=== PATIENT | female | born 1940 | race American Indian/Alaskan Native ===

== ENCOUNTER 2020-10-14 15:23 | Emergency (ER) | payer MEDICARE ==
[2020-10-14 16:09] LABS: Basophils # (Auto) 0.1 K/mm3 (0.0-0.1); Eosinophils # (Auto) 0.1 K/mm3 (0.0-0.4); Eosinophils % (Auto) 1.2 % (0.0-4.3); Hematocrit 38.1 % (30.3-42.9); Hemoglobin 12.9 gm/dl (10.1-14.3); Lymphocytes # (Auto) 2.3 K/mm3 (1.2-5.4); Lymphocytes % (Auto) 34.9 % (13.4-35.0); Mean Corpuscular HGB Conc 34 % (30-34); Mean Corpuscular Volume 89 fl (79-97); Monocytes # (Auto) 0.7 K/mm3 (0.0-0.8); Monocytes % (Auto) 9.9 % (0.0-7.3); Platelet Count 220 K/mm3 (140-440); Red Blood Count 4.28 M/mm3 (3.65-5.03); Red Cell Distribution Width 14.4 % (13.2-15.2)
[2020-10-14 16:16] LABS: Mucus,Urine FEW /HPF
[2020-10-14 16:27] LABS: BUN/Creatinine Ratio 14; Blood Urea Nitrogen 14 mg/dL (7-17); Calcium 8.8 mg/dL (8.4-10.2); Hemolysis Index 8
[2020-10-14 16:30] LABS: Bilirubin,Urine NEG (Negative); Blood,Urine NEG (Negative); Color,Urine Yellow (Yellow)
--- NOTE | 2020-10-14 17:58 | Emergency Department Report ---
ED Seizure HPI - General Chief Complaint: Seizure Stated Complaint: POSS STROKE Time Seen by Provider: 10/14/20 17:32 Source: patient Mode of arrival: Ambulatory Limitations: No Limitations - History of Present Illness Initial Comments: Chief complaint: "I think she had a seizure." HPI: This is a 80-year-old female with history of hypertension, CVA/TIA, dementia, GI bleed, anemia who presents with seizure-like episode witnessed by her daughter who is at the bedside. Patient was parked in the grocery store parking lot. While seated in the car., Daughter noticed her eyes rolling back of her head drooling, shaking of all extremities. She appears to just jump back. The seizure like episode lasted 5 seconds. No previous history of seizure. No history of new medications such as antibiotics. She feels in her normal state of health at this point. She did not have any preceding symptoms. She has been in her normal state of health. Prescriptions include memantine amlodipine metoprolol donepezil She has a follow-up appointment with her neurologist Dr. Michelle Cooper tomorrow. Patient had MRI brain within the last year she was recently diagnosed with dementia. She is retired. She lives alone. 3 daughters share caregiving responsib ilities. Complaint: seizure -: Sudden Description of Episode: loss of consciousness, tonic-clonic movement -: second(s) (5 seconds) Witnessed:: Yes Trauma: No Seizure History: none Place: other (In the car while sitting ) Possible Precipitating Event: none Associated Symptoms: denies other symptoms Treatments Prior to Arrival: none - Related Data Home Medications Medication Instructions Recorded Confirmed Last Taken Metoprolol [Lopressor TAB] 100 mg PO DAILY 12/27/13 01/08/14 Unknown Previous Rx's Medication Instructions Recorded Last Taken Type Sennosides/Docusate Sodium 1 each PO BID #30 tablet 12/28/13 Unknown Rx [Sennosides-Docusate Sodium Tab] Simvastatin [Zocor TAB] 5 mg PO QHS #30 tablet 12/28/13 Unknown Rx Pantoprazole [Protonix INJ] 40 mg PO BID #60 vial 01/10/14 Unknown Rx Ciprofloxacin HCl [Ciprofloxacin 500 mg PO Q12HR 10 Days #20 tab 11/23/19 Unknown Rx TAB] Allergies Allergy/AdvReac Type Severity Reaction Status Date / Time Sulfa (Sulfonamide Allergy Swelling Verified 12/27/13 07:25 Antibiotics) ED Review of Systems ROS: Stated complaint: POSS STROKE Other details as noted in HPI Comment: All other systems reviewed and negative Constitutional: denies: fever, malaise Respiratory: denies: cough, shortness of breath Cardiovascular: denies: chest pain Gastrointestinal: denies: abdominal pain, nausea, vomiting ED Past Medical Hx - Past Medical History Previous Medical History?: Yes Hx Hypertension: Yes Hx CVA: Yes (tia no residual) Hx Heart Attack/AMI: No Hx Congestive Heart Failure: No Hx Diabetes: No Hx Deep Vein Thrombosis: No Hx Pulmonary Embolism: No Hx GERD: No Hx Liver Disease: No Hx Renal Disease: No Hx Sickle Cell Disease: No Hx Arthritis: No Hx Headaches / Migraines: No Hx Seizures: No Hx Kidney Stones: No Hx Psychiatric Treatment: No Hx Asthma: No Hx COPD: No Hx Tuberculosis: No Hx Dementia: No Hx HIV: No - Surgical History Past Surgical History?: Yes Hx Open Heart Surgery: No Hx Internal Defibrillator: No Hx Cholecystectomy: No Hx Appendectomy: No Hx Breast Surgery: No Additional Surgical History: hysterectomy thyroid ectomy, mass removed shoulder right shoulder, breast biopsy (benign) - Social History Smoking Status: Never Smoker Substance Use Type: None - Medications Home Medications: Home Medications Medication Instructions Recorded Confirmed Last Taken Type Metoprolol [Lopressor TAB] 100 mg PO DAILY 12/27/13 01/08/14 Unknown History Sennosides/Docusate Sodium 1 each PO BID #30 tablet 12/28/13 01/08/14 Unknown Rx [Sennosides-Docusate Sodium Tab] Simvastatin [Zocor TAB] 5 mg PO QHS #30 tablet 12/28/13 01/08/14 Unknown Rx Pantoprazole [Protonix INJ] 40 mg PO BID #60 vial 01/10/14 Unknown Rx Ciprofloxacin HCl [Ciprofloxacin 500 mg PO Q12HR 10 Days #20 tab 11/23/19 Unknown Rx TAB] ED Physical Exam - General Limitations: No Limitations General appearance: alert, in no apparent distress - Head Head exam: Present: atraumatic, normocephalic - Eye Eye exam: Present: normal appearance - ENT ENT exam: Present: mucous membranes moist - Neck Neck exam: Present: normal inspection, full ROM - Respiratory Respiratory exam: Present: normal lung sounds bilaterally. Absent: respiratory distress, wheezes, rales, rhonchi - Cardiovascular Cardiovascular Exam: Present: regular rate, normal rhythm, normal heart sounds. Absent: systolic murmur, diastolic murmur, rubs, gallop - GI/Abdominal GI/Abdominal exam: Present: soft, normal bowel sounds. Absent: distended, tenderness, guarding - Extremities Exam Extremities exam: Present: normal inspection - Back Exam Back exam: Present: normal inspection - Neurological Exam Neurological exam: Present: alert, oriented X3 - Expanded Neurological Exam Expanded Patient oriented to: Present: person, place, time Speech: Present: fluid speech Cranial nerves: EOM's Intact: Normal Sensory exam: Upper Extremity Light Touch: Normal Motor strength exam: RUE: 5, LUE: 5, RLE: 5, LLE: 5 DTR: bicep (R): 0, bicep (L): 0, tricep (R): 0, tricep (L): 0 Best Eye Response (Gary): (4) open spontaneously Best Motor Response (Alison): (6) obeys commands Best Verbal Response (Gary): (5) oriented Alison Total: 15 - Psychiatric Psychiatric exam: Present: normal affect, normal mood - Skin Skin exam: Present: warm, dry, intact, normal color. Absent: rash ED Course Vital Signs 10/14/20 10/14/20 15:27 18:18 Temperature 98.6 F Pulse Rate 55 L Respiratory 18 18 Rate Blood Pressure 150/59 O2 Sat by Pulse 96 Oximetry ED Medical Decision Making - Lab Data Result diagrams: 10/14/20 15:54 10/14/20 15:54 Laboratory Results - last 24 hr 10/14/20 10/14/20 10/14/20 15:32 15:54 15:54 WBC 6.5 RBC 4.28 Hgb 12.9 Hct 38.1 MCV 89 MCH 30 MCHC 34 RDW 14.4 Plt Count 220 Lymph % (Auto) 34.9 Waller % (Auto) 9.9 H Eos % (Auto) 1.2 Baso % (Auto) 1.0 Lymph # (Auto) 2.3 Waller # (Auto) 0.7 Eos # (Auto) 0.1 Baso # (Auto) 0.1 Seg Neutrophils % 53.0 Seg Neutrophils # 3.5 Sodium 140 Potassium 4.1 Chloride 102.9 Carbon Dioxide 26 Anion Gap 15 BUN 14 Creatinine 1.0 Estimated GFR > 60 BUN/Creatinine Ratio 14 Glucose 89 POC Glucose 99 Calcium 8.8 Urine Color Urine Turbidity Urine pH Ur Specific [place] Urine Protein Urine Glucose (UA) Urine Ketones Urine Blood Urine Nitrite Ur Reducing Substances Urine Bilirubin Urine Ictotest Urine Urobilinogen Ur Leukocyte Esterase Urine WBC (Auto) Urine RBC (Auto) U Epithel Cells (Auto) Urine Mucus 10/14/20 Unknown WBC RBC Hgb Hct MCV MCH MCHC RDW Plt Count Lymph % (Auto) [place] % (Auto) Eos % (Auto) Baso % (Auto) Lymph # (Auto) [place] # (Auto) Eos # (Auto) Baso # (Auto) Seg Neutrophils % Seg Neutrophils # Sodium Potassium Chloride Carbon Dioxide Anion Gap BUN Creatinine Estimated GFR BUN/Creatinine Ratio Glucose POC Glucose Calcium Urine Color Yellow Urine Turbidity Slightly-cloudy Urine pH 7.0 Ur Specific [place] 1.021 Urine Protein 30 mg/dl Urine Glucose (UA) Neg Urine Ketones Neg Urine Blood Neg Urine Nitrite Neg Ur Reducing Substances Not Reportable Urine Bilirubin Neg Urine Ictotest Not Reportable Urine Urobilinogen 4.0 Ur Leukocyte Esterase Tr Urine WBC (Auto) 1.0 Urine RBC (Auto) 4.0 U Epithel Cells (Auto) 11.0 Urine Mucus Few - Radiology Data Radiology results: report reviewed Patient Name: TERRANCE BARBOSA Gender: Female Date of : 1940 Referring Provider: MUNIRA REINA Organization: [facility] Accession Number: [id number] Requested Date: October 14, 2020 17:52 Report Status: Final Requested Procedure: 1 Procedure Description: CT head/brain wo con Modality: CT Findings Reporting MD: Luciano Calix Dictation Time: October 14, 2020 17:33 Project Developer: Not available Chlorine Cell Tender Date: CT head/brain wo con INDICATION / CLINICAL INFORMATION: 80 years Female; seizure. TECHNIQUE: Routine CT head without contrast. All CT scans at this location are performed using CT dose reduction for ALARA by means of automated exposure control. COMPARISON: The study is compared to the previous CT of 11/23/2019. FINDINGS: BRAIN / INTRACRANIAL CONTENTS: There appears be mild to moderate cerebral white matter disease most consistent with microvascular angiopathy. The findings include the gangliocapsular regions, greater on the right which correlates with the previous exam. There is also mild cerebral atrophy with associated mild prominence of the ventricular system which is unchanged. There is no clear CT evidence of acute intracranial hemorrhage or significant mass effect. ORBITS: No significant abnormality of visualized orbits. SINUSES / MASTOIDS: No significant abnormality in the visualized paranasal sinuses or mastoid air cells. CRANIOCERVICAL JUNCTION: No significant abnormality. ADDITIONAL FINDINGS: There is note of incidental empty sella. IMPRESSION: 1. 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 Signer Name: Luciano Calix MD Signed: 10/14/2020 5:33 PM Workstation Name: [id number] - Medical Decision Making Seizure: No new medications to cause lowering of seizure threshold. No indication of cardiogenic causes. She did not have any preceding chest pain, palpitations or shortness of breath. She had tonic-clonic movement throughout the brief episode. Daughter and patient understand that she is not allowed to drive until cleared by her neurologist. Daughter will ensure that neurologist is aware of seizure episode. CBC chemistry within normal limits. Urinalysis unremarkable. CT head without acute abnormality. Critical care attestation.: If time is entered above; I have spent that time in minutes in the direct care of this critically ill patient, excluding procedure time. ED Disposition Clinical Impression: Seizure Disposition: DC-01 TO HOME OR SELFCARE Is pt being admited?: No Does the pt Need Aspirin: No Condition: Stable Instructions: Seizure, Adult, [id number], Seizure, Adult Additional Instructions: You are not allowed to drive until cleared by your neurologist. Please avoid swimming or ladders.
--- NOTE | 2020-10-14 18:38 | Cat Scan Report ---
CT head/brain wo con INDICATION / CLINICAL INFORMATION: 80 years Female; seizure. TECHNIQUE: Routine CT head without contrast. All CT scans at this location are performed using CT dos e reduction for ALARA by means of automated exposure control. COMPARISON: The study is compared to the previous CT of 11/23/2019. FINDINGS: BRAIN / INTRACRANIAL CONTENTS: There appears be mild to moderate cerebral white matter disease most c onsistent with microvascular angiopathy. The findings include the gangliocapsular regions, greater on the right which correlates with the previous exam. There is also mild cerebral atrophy with associated mild prominence of the ventricular system which i s unchanged. There is no clear CT evidence of acute intracranial hemorrhage or significant mass effec t. ORBITS: No significant abnormality of visualized orbits. SINUSES / MASTOIDS: No significant abnormality in the visualized paranasal sinuses or mastoid air jeison ls. CRANIOCERVICAL JUNCTION: No significant abnormality. ADDITIONAL FINDINGS: There is note of incidental empty sella. IMPRESSION: 1. 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 Signer Name: Luciano Calix MD Signed: 10/14/2020 6:33 PM Workstation Name: [id number]
[2020-10-14 19:55] VITALS: BP 126/66
--- NOTE | 2020-10-16 17:49 | Electrocardiograph Report ---
[facility] Test Date: 2020-10-14 Test Time: 15:40:22 Pat Name: TERRANCE BARBOSA Department: Room: Gender: F Pca: FAIZA : 1940 Requested By: MUNIRA REINA Order Number: [id number] Reading MD: Soha Fabian Measurements Intervals [place] Rate: 52 P: 0 WY: 178 QRS: 6 QRSD: 94 T: 48 QT: 458 QTc: 427 Interpretive Statements Sinus bradycardia No previous ECG available for comparison Electronically Signed On 10-16-2020 17:48:54 EDT by Soha Fabian
== END 2020-10-14 19:56 | disposition home or self-care (01) ==
LOC: ED 15:23
DX: G40.909 Epilepsy, unspecified, not intractable, without status epilepticus (principal); Z88.2 Allergy status to sulfonamides; Z79.899 Other long term (current) drug therapy; Z90.710 Acquired absence of both cervix and uterus; Z98.890 Other specified postprocedural states
CPT/HCPCS: 36415; 70450; 80048; 81001; 82962; 85025; 93005